=== PATIENT | female | born 1965 | race Two or more races ===

== ENCOUNTER 2020-03-30 09:23 | Emergency (ER) | payer OTHER ==
[2020-03-30] MEDS ORDERED: KETOROLAC TROMETHAMINE 60 MG/2 ML SDV IM ONE (10:33)
--- NOTE | 2020-03-30 11:07 | RADIOLOGY REPORT (SQ) ---
EXAM DESCRIPTION: ANKLE LEFT COMPLETE IMAGES COMPLETED DATE/TIME: 03/30/2020 10:55 am REASON FOR STUDY: pain COMPARISON: None. NUMBER OF VIEWS: Three views. TECHNIQUE: AP, lateral, and oblique radiographic images acquired of the left ankle. LIMITATIONS: None. FINDINGS: MINERALIZATION: Normal. BONES: No acute fracture or dislocation. No worrisome bone lesions. Incidental note is made of calc aneal enthesopathy and mild degenerative changes. JOINTS: No effusions. SOFT TISSUES: No soft tissue swelling. No foreign body. OTHER: No other significant finding. IMPRESSION: No evidence of acute osseous injury. Background of mild degenerative change. TECHNICAL DOCUMENTATION: JOB ID: [id number] 2010 [employer]- All Rights Reserved Reading location - IP/workstation name: [email or web address]
--- NOTE | 2020-03-30 11:11 | RADIOLOGY REPORT (SQ) ---
EXAM DESCRIPTION: TIBIA FIBULA LEFT IMAGES COMPLETED DATE/TIME: 03/30/2020 10:55 am REASON FOR STUDY: pain COMPARISON: None. NUMBER OF VIEWS: Four views. TECHNIQUE: Two radiographic images acquired of the left tibia and fibula to include the knee and ank le in at least one projection. LIMITATIONS: None. FINDINGS: MINERALIZATION: Normal. BONES: No acute fracture or dislocation. No worrisome bone lesions. Incidental note is made of calc aneal enthesopathy and mild tibiotalar degenerative changes. . SOFT TISSUES: No obvious swelling or foreign body. OTHER: No other significant finding. IMPRESSION: No evidence of acute osseous injury. Incidental note is made of mild degenerative munguia es. TECHNICAL DOCUMENTATION: JOB ID: [id number] 2010 [employer]- All Rights Reserved Reading location - IP/workstation name: [email or web address]
--- NOTE | 2020-03-30 11:12 | RADIOLOGY REPORT (SQ) ---
EXAM DESCRIPTION: FEMUR LEFT IMAGES COMPLETED DATE/TIME: 03/30/2020 10:55 am REASON FOR STUDY: pain COMPARISON: None. NUMBER OF VIEWS: Two views. TECHNIQUE: Two radiographic images acquired of the left femur to include hip and knee in at least on e projection. LIMITATIONS: None. FINDINGS: MINERALIZATION: Normal. BONES: No acute fracture or dislocation. No worrisome bone lesions. Periosteal irregularity seen of the posterior aspect of the proximal femoral diaphysis is consistent with tug reaction. Incidental note is made of pelvic enthesopathy. SOFT TISSUES: No obvious swelling or foreign body. OTHER: No other significant finding. IMPRESSION: No evidence acute osseous injury or significant degenerative change. TECHNICAL DOCUMENTATION: JOB ID: [id number] 2010 [employer]- All Rights Reserved Reading location - IP/workstation name: [email or web address]
--- NOTE | 2020-03-30 12:28 | ER Document Report ---
Entered by POOL BROWN SCRIBE 03/30/20 1051 Acting as scribe for:AUDREY QUINN MD ED Extremity Problem, Lower - General Chief Complaint: Leg Pain Stated Complaint: LEFT LEG PAIN Time Seen by Provider: 03/30/20 09:46 Information source: Patient Notes: This 54 year old female patient presents to the emergency department today with left ankle and calf pain. Patient state she is visiting from [place] and arrived here by plane x2 weeks ago. Patient states her LLE pain began x4 days ago, it feels like "pricking needles", and her skin is gathering machine feeder some places. Patient states she is able to ambulate, but with pain. Patient states she visited the ED x3 days ago for her LLE pain and a doppler study was done, showing no evidence of a DVT. Denies back pain or RLE pain. Patient reports pain in her left upper and mi-thigh today. Patient states she called her PCP in [place] this morning, and was told to re-visit the ED. - Related Data Allergies/Adverse Reactions: No Known Allergies Allergy (Verified 03/30/20 09:29) Past Medical History - General Information source: Patient - Social History Smoking Status: Never Smoker Cigarette use (# per day): No Chew tobacco use (# tins/day): No Frequency of alcohol use: None Family History: Reviewed & Not Pertinent Patient has homicidal ideation: No Past Surgical History: Reports: Hx Section, Hx Cholecystectomy Review of Systems - Review of Systems Constitutional: No symptoms reported EENT: No symptoms reported Cardiovascular: No symptoms reported Respiratory: No symptoms reported Gastrointestinal: No symptoms reported Genitourinary: No symptoms reported Female Genitourinary: No symptoms reported Musculoskeletal: See HPI, Other - L calf/ankle pain. denies: Back pain Skin: See HPI Hematologic/Lymphatic: No symptoms reported Neurological/Psychological: No symptoms reported -: Yes All other systems reviewed and negative Physical Exam - Vital signs Vitals: Temp Pulse Resp BP Pulse Ox 98.0 F 75 20 109/62 99 03/30/20 09:27 03/30/20 09:27 03/30/20 09:27 03/30/20 09:27 03/30/20 09:27 - General General appearance: Appears well, Alert - HEENT Head: Normocephalic, Atraumatic Eyes: Normal Pupils: PERRL - Respiratory Respiratory status: No respiratory distress Chest status: Nontender Breath sounds: Normal Chest palpation: Normal - Cardiovascular Rhythm: Regular Heart sounds: Normal auscultation Murmur: No - Abdominal Inspection: Normal, Other - Soft Distension: No distension Bowel sounds: Normal Tenderness: Nontender - Back Back: Normal, Nontender - Extremities General upper extremity: Normal inspection. No: Edema Notes: Tenderness with palpation to the left ankle, calf, and mid to upper thigh. No Shivam's sign. No edema. Normal strength and ROM of bilateral lower extremities. - Neurological Neuro grossly intact: Yes Cognition: Normal Orientation: AAOx4 Speech: Normal Cranial nerves: Normal Motor strength normal: LUE, RUE, LLE, RLE Additional motor exam normals: Dorsiflexion, Plantar flexion Sensory: Normal - Psychological Associated symptoms: Normal affect, Normal mood - Skin Skin Temperature: Warm Skin Moisture: Dry Skin Color: Normal Course - Re-evaluation Re-evalutation: 03/30/20 12:21 Patient reports her left leg pain has improved after IM Toradol 60 mg. I explained to patient that she had mild degenerative arthritic changes in the joints of her left leg. No fracture seen. - Vital Signs Vital signs: Temp Pulse Resp BP Pulse Ox 98.0 F 75 20 109/62 99 03/30/20 09:29 03/30/20 09:27 03/30/20 09:27 03/30/20 09:27 03/30/20 09:27 - Diagnostic Test Radiology reviewed: Image reviewed - Left ankle no osseous fracture noted mild degenerative changes. No fracture Radiology results interpreted by me: 03/30/20 12:23 Arthritic changes noted left ankle series Left tib-fib no fracture seen again arthritic changes noted. Left femur no osseous changes no arthritis noted. Discharge - Discharge Clinical Impression: Left leg pain, Arthritis of ankle Condition: Stable Disposition: HOME, SELF-CARE Additional Instructions: Arthritis Your symptoms are due to arthritis. Arthritis is an inflammation of the joints. There are many types -- osteoarthritis (due to "wear and tear"), auto- immmune arthritis (such as rheumatoid, lupus, Eduin's, and others), and crystal-induced arthritis (such as gout and pseudogout). The physician's examination, combined with laboratory tests, will determine the cause of your arthritis. All types of arthritis are treated with antiinflammatory medications. Other medication may be required for special types of arthritis, or if your problem does not respond to the antiinflammatory medicine. Local warmth may be helpful. Move the involved joints through the full range of motion daily. Mild exercise is usually still possible for most persons with arthritis (ask your physician). Swimming provides good exercise without damaging the joints. Contact the physician if you are worsening in any way. Prescriptions: Ibuprofen [Motrin 800 mg Tablet] 800 mg PO Q8H PRN #30 tab PRN Reason: pain I personally performed the services described in the documentation, reviewed and edited the documentation which was dictated to the scribe in my presence, and it accurately records my words and actions.
[2020-03-30 12:38] VITALS: BP 114/67
== END 2020-03-30 12:37 | disposition home or self-care (01) ==
LOC: ER 09:23
DX: M19.072 Primary osteoarthritis, left ankle and foot (principal); M79.605 Pain in left leg; M25.572 Pain in left ankle and joints of left foot; M79.652 Pain in left thigh
CPT/HCPCS: 99284; 96372; 73610; 73552; 73590; J1885

== ENCOUNTER 2020-05-07 12:11 | Emergency (ER) | payer OTHER ==
[2020-05-07] MEDS ORDERED: KETOROLAC TROMETHAMINE INJ/PF 30 MG/1 ML SDV IV ONE (12:55)
[2020-05-07] MEDS ORDERED: ONDANSETRON HCL INJ/PF 4 MG/2 ML SDV IV ONE (12:55)
--- NOTE | 2020-05-07 12:57 | ER Document Report ---
ED Medical Screen (RME) - General Chief Complaint: Pain With Urination Stated Complaint: ABDOMINAL PAIN,PAINFUL URINATION Time Seen by Provider: 05/07/20 12:47 - HPI Notes: 05/07/20 12:56 54-year-old female to the emergency department with complaints of right lower quadrant abdominal pain that has now spread across her entire lower abdomen that began Tuesday and has persisted. She also admits to some painful urination. She states the painful urination started a day after her abdominal pain. Admits to nausea but denies any vomiting. She denies any fevers, chills, diarrhea, sick contacts, chest pain, shortness of breath. She states that she had something similar like this several months ago and was seen [facility] the [facility]. She had a transvaginal ultrasound done and she was told everything was normal. She states it is pretty uncomfortable except for she can get a little bit of relief when she performs Kegel move. Denies any flank pain. She states that her urine is aleta in color but denies lillie blood. I performed a brief medical screening exam on the patient determined that the patient needs further evaluation and management by main side provider. I have placed initial orders to help expedite care. - Related Data Allergies/Adverse Reactions: No Known Allergies Allergy (Verified 03/30/20 09:29) Past Medical History Past Surgical History: Reports: Hx Section, Hx Cholecystectomy Physical Exam - Vital signs Vitals: Temp Pulse Resp BP Pulse Ox 98.5 F 83 17 121/83 97 05/07/20 12:37 05/07/20 12:37 05/07/20 12:37 05/07/20 12:37 05/07/20 12:37 Course - Vital Signs Vital signs: Temp Pulse Resp BP Pulse Ox 98.5 F 83 17 121/83 97 05/07/20 12:37 05/07/20 12:37 05/07/20 12:37 05/07/20 12:37 05/07/20 12:37
[2020-05-07 13:08] LABS: APPEARANCE,URINE SLIGHTLY-CLOUDY; BILIRUBIN,URINE NEGATIVE (NEGATIVE); COLOR,URINE YELLOW; GLUCOSE, URINE NEGATIVE (NEGATIVE); KETONES,URINE NEGATIVE (NEGATIVE); PROTEIN,URINE NEGATIVE (NEGATIVE); URINE SPECIFIC GRAVITY 1.026
[2020-05-07 13:37] LABS: ABSOLUTE EOSINOPHILS # (AUTO) 0.1 10^3/uL (0.0-0.6); ABSOLUTE LYMPHOCYTES (AUTO) 2.5 10^3/uL (0.5-4.7); ABSOLUTE MONOCYTES (AUTO) 0.6 10^3/uL (0.1-1.4); BASOPHILS % (AUTO) 0.2 % (0-2); HEMATOCRIT 38.3 % (36.0-47.0); HEMOGLOBIN 13.5 g/dL (12.0-15.5); LYMPHOCYTES % (AUTO) 34.4 % (13-45); MEAN CORPUSCULAR HEMOGLOBIN 31.5 pg (27.0-33.4); MEAN CORPUSCULAR HGB CONC 35.2 g/dL (32.0-36.0); MEAN CORPUSCULAR VOLUME 90 fl (80-97); MONOCYTES % (AUTO) 8.2 % (3-13); PLATELET COUNT 259 10^3/uL (150-450); RED BLOOD COUNT 4.28 10^6/uL (3.72-5.28); SEGMENTED NEUTROPHILS % (AUTO) 56.2 % (42-78); TOTAL CELLS COUNTED % (AUTO) 100 %; WHITE BLOOD COUNT 7.2 10^3/uL (4.0-10.5)
[2020-05-07 13:52] LABS: ALBUMIN 4.5 g/dL (3.5-5.0); ALKALINE PHOSPHATASE 76 U/L (38-126); ANION GAP 7 (5-19); ASPARTATE AMINO TRANSFERASE 53 U/L (14-36); BILIRUBIN,DIRECT 0.2 mg/dL (0.0-0.4); BLOOD UREA NITROGEN 16 mg/dL (7-20); CALCIUM 9.3 mg/dL (8.4-10.2); CARBON DIOXIDE 28 mmol/L (22-30); CHLORIDE 106 mmol/L (98-107); GLUCOSE 103 mg/dL (75-110); POTASSIUM 4.3 mmol/L (3.6-5.0); TOTAL PROTEIN 7.7 g/dL (6.3-8.2)
--- NOTE | 2020-05-07 14:26 | ER Document Report ---
ED GI/ - General Chief Complaint: Abdominal Pain Stated Complaint: ABDOMINAL PAIN,PAINFUL URINATION Time Seen by Provider: 05/07/20 12:47 Notes: CHIEF COMPLAINT: Right lower quadrant pain dark urine HPI: 54-year-old female presenting with 2 to 3 days of lower abdominal pain began in the right lower quadrant then progressed across the lower abdomen. Subjective fever 2 to 3 days ago no fever today. Reports urine has become darker over the last 24 hours. Has had nausea no vomiting. Hurts to walk ROS: See HPI - all other systems were reviewed and are otherwise negative Constitutional: no fever Eyes: no drainage, no blurred vision ENT: no runny nose, no sore throat Cardiovascular: no chest pain Resp: no SOB, no cough GI: no vomiting, no diarrhea, + abdominal pain : no dysuria Integumentary: no rash Allergy: no hives Musculoskeletal: no extremity pain or swelling Neurological: no numbness/tingling, no weakness MEDICATIONS: I agree with the patient medications as charted by the RN. ALLERGIES: I agree with the allergies as charted by the RN. PAST MEDICAL HISTORY/PAST SURGICAL HISTORY: Reviewed and agree as charted by RN. SOCIAL HISTORY: Reviewed and agree as charted by RN. FAMILY HISTORY: No significant familial comorbid conditions directly related to patient complaint EXAM: Reviewed vital signs as charted by RN. CONSTITUTIONAL: Alert and oriented and responds appropriately to questions. Well-appearing; well-nourished HEAD: Normocephalic; atraumatic EYES: PERRL; Conjunctivae clear, sclerae non-icteric ENT: normal nose; no rhinorrhea; moist mucous membranes NECK: Supple without meningismus; non-tender; no cervical lymphadenopathy, no masses CARD: RRR; no murmurs, no clicks, no rubs, no gallops; symmetric distal pulses RESP: Normal chest excursion without splinting or tachypnea; breath sounds clear and equal bilaterally; no wheezes, no rhonchi, no rales, pulse oximetry 98% on room air not hypoxic ABD/GI: Normal bowel sounds; non-distended; soft, mild tenderness across the pelvis on palpation more focal in the right lower quadrant region, no rebound, no guarding; no palpable organomegaly or masses. BACK: The back appears normal and is non-tender to palpation, there is no CVA tenderness EXT: Normal ROM in all joints; non-tender to palpation; no cyanosis, no effusions, no edema SKIN: Normal color for age and race; warm; dry; good turgor; no acute lesions noted NEURO: Moves all extremities equally; Motor and sensory function intact PSYCH: The patient's mood and manner are appropriate. Grooming and personal hygiene are appropriate. MDM: 54-year-old female presenting with right lower quadrant pain but some discomfort across the entire pelvis over 2 to 3 days with some darkening of the urine. Initial screening labs and order for CT imaging placed in triage process. - Related Data Allergies/Adverse Reactions: No Known Allergies Allergy (Verified 05/07/20 14:34) Past Medical History - Social History Smoking Status: Never Smoker Chew tobacco use (# tins/day): No Frequency of alcohol use: None Drug Abuse: None Family History: Reviewed & Not Pertinent Patient has homicidal ideation: No Past Surgical History: Reports: Hx Section, Hx Cholecystectomy Physical Exam - Vital signs Vitals: Temp 98.5 F 05/07/20 12:12 Course - Re-evaluation Re-evalutation: 05/07/20 16:27 I discussed evaluation results at length with the patient. She has mild diverticulitis, UTI, will place on Cipro Flagyl pain medication. She is from [place] indicates she will follow-up with gastroenterology when she returns home. - Vital Signs Vital signs: Temp Pulse Resp BP Pulse Ox 98.5 F 83 17 121/83 97 05/07/20 12:37 05/07/20 12:37 05/07/20 12:37 05/07/20 12:37 05/07/20 12:37 - Laboratory Result Diagrams: 05/07/20 13:10 05/07/20 13:10 Laboratory results interpreted by me: 05/07/20 05/07/20 12:47 13:10 AST 53 H ALT 83 H Urine Blood MODERATE H Urine Urobilinogen 2.0 H Leukocyte Esterase Rfl LARGE H Discharge - Discharge Clinical Impression: Diverticulitis large intestine Qualifiers: Diverticulitis bleeding: without bleeding Diverticulitis complication: without perforation or abscess Qualified Code(s): K57.32 - Diverticulitis of large intestine without perforation or abscess without bleeding UTI (urinary tract infection) Qualifiers: Urinary tract infection type: acute cystitis Hematuria presence: with hematuria Qualified Code(s): N30.01 - Acute cystitis with hematuria Condition: Stable Disposition: HOME, SELF-CARE Additional Instructions: Take the medications as prescribed. Do not drive if taking Percocet for pain. Take Zofran for nausea. You were noted to have both a urinary tract infection and diverticulitis today. You will need to follow-up with gastroenterology in several weeks for reevaluation and outpatient colonoscopy. You have indicated you will do this when you return home to [place]. If you have onset of fever worsening abdominal pain while in the local area you may return to the emergency department for reevaluation Prescriptions: Ciprofloxacin HCl [Cipro 500 mg Tablet] 500 mg PO BID #20 tablet Metronidazole [Flagyl 500 mg Tablet] 500 mg PO Q6H #28 tablet Oxycodone HCl/Acetaminophen [Percocet 5-325 mg Tablet] 1 tab PO Q4H PRN #15 tab PRN Reason: Ondansetron [Zofran Odt 4 mg Tablet] 1 - 2 tab PO Q4H PRN #15 tab.rapdis PRN Reason: For Nausea/Vomiting
[2020-05-07] MEDS ORDERED: CEFTRIAXONE 1 GM/D5W RTU 1 GM/50 ML RTUPB IV ONE (14:27)
--- NOTE | 2020-05-07 15:21 | RADIOLOGY REPORT (SQ) ---
EXAM DESCRIPTION: CT ABD/PELVIS WITH IV ONLY IMAGES COMPLETED DATE/TIME: 05/07/2020 3:00 pm REASON FOR STUDY: RLQ abd pain, lower abd pain COMPARISON: None. TECHNIQUE: CT scan of the abdomen and pelvis performed using helical scanning technique with dynamic intravenous contrast injection. No oral contrast. Images reviewed with lung, soft tissue, and bone windows. Reconstructed coronal and sagittal MPR images reviewed. Delayed images for evaluation of the urinary system also acquired. All images stored on PACS. All CT scanners at this facility use dose modulation, iterative reconstruction, and/or weight based d osing when appropriate to reduce radiation dose to as low as reasonably achievable (ALARA). [facility]: Dose Right [facility]: CareDose [facility]: Dose Right [facility]: Teradose 4D [facility]: [employer] CONTRAST TYPE AND DOSE: contrast/concentration: Isovue 350.00 mmol/ml; Total Contrast Delivered: 90. 0 ml; Total Saline Delivered: 70.0 ml RENAL FUNCTION: BUN 16, creatinine 0.7 RADIATION DOSE: CT Rad equipment meets quality standard of care and radiation dose reduction techniq ues were employed. CTDIvol: 9.9 - 13.9 mGy. DLP: 1212 mGy-cm.. LIMITATIONS: None. FINDINGS: LOWER CHEST: No significant findings. No nodules or infiltrates. LIVER: Decreased attenuation throughout the liver consistent with steatosis. No focal masses. SPLEEN: Normal size. No focal lesions. PANCREAS: No masses. No significant calcifications. No adjacent inflammation or peripancreatic fluid collections. Pancreatic duct not dilated. GALLBLADDER: Surgically absent. ADRENAL GLANDS: No significant masses or asymmetry. RIGHT KIDNEY AND URETER: No solid masses. No significant calcifications. No hydronephrosis or hyd roureter. LEFT KIDNEY AND URETER: No solid masses. No significant calcifications. No hydronephrosis or hydr oureter. AORTA AND VESSELS: No aneurysm. No dissection. Renal arteries, SMA, celiac without stenosis. RETROPERITONEUM: No retroperitoneal adenopathy, hemorrhage or masses. BOWEL AND PERITONEAL CAVITY: Fairly extensive right-sided diverticular change. Slight thickening of the ascending colonic wall and hepatic flexure. No mesenteric inflammatory changes. APPENDIX: Normal. PELVIS: No mass. No free fluid. Normal bladder. ABDOMINAL WALL: Small anterior abdominal wall hernia just right of midline at the level the emboli ki ss containing omental fat only. BONES: No significant or acute findings. OTHER: No other significant finding. IMPRESSION: 1. Fairly extensive diverticular change involving the ascending colon and hepatic flexu re. Suspect mild diverticulitis of the ascending colon and hepatic flexure. No focal abscess or flu id collections. 2. Normal appendix. 3. Hepatic steatosis. TECHNICAL DOCUMENTATION: JOB ID: [id number] Quality ID # [id number]: Final reports with documentation of one or more dose reduction techniques (e.g., Au tomated exposure control, adjustment of the mA and/or kV according to patient size, use of iterative reconstruction technique) 2010 [employer]- All Rights Reserved Reading location - IP/workstation name: [email or web address]
[2020-05-07] MEDS ORDERED: METRONIDAZOLE 500 MG TABLET PO ONE (15:31)
[2020-05-07] MEDS ORDERED: CIPROFLOXACIN HCL 500 MG TABLET PO ONE (15:31)
[2020-05-07 17:26] VITALS: BP 106/67
== END 2020-05-07 17:24 | disposition home or self-care (01) ==
LOC: ER 12:11
DX: K57.32 Diverticulitis of large intestine without perforation or abscess without bleeding (principal); N30.01 Acute cystitis with hematuria; R10.31 Right lower quadrant pain; R82.90 Unspecified abnormal findings in urine
CPT/HCPCS: 99285; 96374; 96375; 36415; 87086; 85025; 87088; 80053; 81001; 74177; J1885; J2405; J0696; 87186